=== PATIENT | female | born 1995 | race Caucasian/White ===

== ENCOUNTER 2017-10-06 09:15 | Emergency (ER) | payer BC, OTHER ==
[2017-10-06 10:13] VITALS: BP 122/77
--- NOTE | 2017-10-06 10:55 | RAD ---
Indication: Right foot pain. 3 views of the right foot demonstrates no fracture or dislocation. No other bone or joint abnormality is identified. IMPRESSION: No definite fractures of the right foot is noted.
--- NOTE | 2017-10-06 11:01 | UC ---
Lower Extremity/Ankle HPI - HPI Summary HPI Summary: right foot pain x 1 day stubbed her right foot last night + pain and swelling of the right foot, pain with walking , improves with rest - History of Current Complaint Chief Complaint: UCLowerExtremity Stated Complaint: RT FOOT COMPLAINT Time Seen by Provider: 10/06/17 10:38 Hx Obtained From: Patient Hx Last Menstrual Period: iud ?: No Onset/Duration: Sudden Onset, Lasting Days - 1, Still Present Severity Initially: Moderate Severity Currently: Moderate Pain Intensity: 8 Aggravating Factor(s): Standing, Ambulation Alleviating Factor(s): Rest, Elevation, Ice Able to Bear Weight: Yes - Allergies/Home Medications Allergies/Adverse Reactions: Allergies Allergy/AdvReac Type Severity Reaction Status Date / Time Sulfa (Sulfonamide Allergy Rash Verified 10/06/17 10:13 Antibiotics) PMH/Surg Hx/FS Hx/Imm Hx Previously Healthy: Yes - Surgical History Surgical History: Yes Surgery Procedure, Year, and Place: BREAST BIOPSY, ADENOIDS, TUBES IN EARS - Family History Known Family History: Positive: None, Other - postivie [facility] for asthma - Social History Alcohol Use: None Substance Use Type: None Smoking Status (MU): Never Smoked Tobacco - Immunization History Most Recent Influenza Vaccination: none Review of Systems Constitutional: Negative Skin: Negative Eyes: Negative ENT: Negative Respiratory: Negative Is Patient Immunocompromised?: No All Other Systems Reviewed And Are Negative: Yes Physical Exam Triage Information Reviewed: Yes Appearance: Well-Appearing, No Pain Distress, Well-Nourished Vital Signs: Initial Vital Signs Temp 98.0 F 10/06/17 10:09 Pulse 88 10/06/17 10:09 Resp 18 10/06/17 10:09 BP 122/77 10/06/17 10:09 Pulse Ox 99 10/06/17 10:09 ENT: Positive: Normal ENT inspection, Hearing grossly normal, Pharynx normal, Pharyngeal erythema Neck: Positive: Supple, Nontender, No Lymphadenopathy Respiratory: Positive: Chest non-tender, Lungs clear, Normal breath sounds Cardiovascular: Positive: RRR, No Murmur, Pulses Normal Musculoskeletal: Positive: Other: - right foot: no swelling, no bruising , + tenderness 5th metatarsal bone , Skin Exam: Normal Diagnostics - Laboratory Diagnostic Studies Completed/Ordered: right foot xray: no fracture seen , normal xray Lower Extremity Course/Dx - Differential Dx/Diagnosis Provider Diagnoses: contusion right foot Discharge - Discharge Plan Condition: Stable Disposition: HOME Patient Education Materials: Foot Contusion (ED) Forms: *Work Release Referrals: Kylee Hollingsworth MD [Primary Care Provider] - If Needed
== END 2017-10-06 11:03 | disposition home or self-care (01) ==
LOC: UCCORT 09:15
DX: S90.31XA Contusion of right foot, initial encounter (principal); W22.8XXA Striking against or struck by other objects, initial encounter; Y92.9 Unspecified place or not applicable
CPT/HCPCS: 99211; G0463

== ENCOUNTER 2018-02-03 13:03 | Emergency (ER) | payer BC ==
[2018-02-03 13:30] VITALS: BP 110/74
--- NOTE | 2018-02-03 13:57 | UC ---
Throat Pain/Nasal Evelio HPI - HPI Summary HPI Summary: Pt c/o nasal congestion, sinus pressure, chills and generalized malaise X 2-3 days. - History of Current Complaint Chief Complaint: UCGeneralIllness Stated Complaint: SINUS CONGESTION Time Seen by Provider: 02/03/18 13:44 Hx Obtained From: Patient Hx Last Menstrual Period: 01/08/18 ?: No Onset/Duration: Sudden Onset Severity: Moderate Pain Intensity: 5 Associated Signs & Symptoms: Positive: Sinus Discomfort - Epiglottits Risk Factors Epiglottis Risk Factors: Negative - Allergies/Home Medications Allergies/Adverse Reactions: Allergies Allergy/AdvReac Type Severity Reaction Status Date / Time Sulfa (Sulfonamide Allergy Rash Verified 02/03/18 13:26 Antibiotics) PMH/Surg Hx/FS Hx/Imm Hx Previously Healthy: Yes - Surgical History Surgical History: Yes Surgery Procedure, Year, and Place: BREAST BIOPSY, ADENOIDS, TUBES IN EARS - Family History Known Family History: Positive: None, Other - postivie [facility] for asthma - Social History Occupation: Employed Full-time Lives: With Family Alcohol Use: None Substance Use Type: None Smoking Status (MU): Never Smoked Tobacco Have You Smoked in the Last Year: No - Immunization History Most Recent Influenza Vaccination: none Review of Systems Constitutional: Chills, Fatigue Skin: Negative Eyes: Negative ENT: Sinus Congestion, Sinus Pain/Tenderness Respiratory: Negative Cardiovascular: Negative Gastrointestinal: Negative Genitourinary: Negative Motor: Negative Neurovascular: Negative Musculoskeletal: Negative Neurological: Negative Psychological: Negative Is Patient Immunocompromised?: No All Other Systems Reviewed And Are Negative: Yes Physical Exam Triage Information Reviewed: Yes Appearance: Ill-Appearing Vital Signs: Initial Vital Signs Temp 99.1 F 02/03/18 13:24 Pulse 75 02/03/18 13:24 Resp 16 02/03/18 13:24 BP 110/74 02/03/18 13:24 Pulse Ox 98 02/03/18 13:24 Vital Signs Reviewed: Yes Eye Exam: Normal ENT Exam: Other ENT: Positive: Nasal congestion, Sinus tenderness Dental Exam: Normal Neck exam: Normal Respiratory Exam: Normal Cardiovascular Exam: Normal Musculoskeletal Exam: Normal Neurological Exam: Normal Psychological Exam: Normal Skin Exam: Normal Throat Pain/Nasal Course/Dx - Differential Dx/Diagnosis Differential Diagnosis/HQI/PQRI: Sinusitis, URI Provider Diagnoses: sinusitis Discharge - Sign-Out/Discharge Documenting (check all that apply): Discharge/Admit/Transfer - Discharge Plan Condition: Stable Disposition: HOME Prescriptions: Amoxicillin PO (*) [Amoxicillin 875 MG (*)] 875 mg PO Q12H #20 tab Guaifenesin/Pseudoephedrne HCl [Mucinex D] 1 tab PO DAILY #10 tab Patient Education Materials: Sinusitis (ED) Forms: *Work Release Referrals: Kylee Hollingsworth MD [Primary Care Provider] - If Needed - Billing Disposition and Condition Condition: STABLE Disposition: Home
== END 2018-02-03 14:07 | disposition home or self-care (01) ==
LOC: UCCORT 13:03
DX: J32.9 Chronic sinusitis, unspecified (principal); Z88.2 Allergy status to sulfonamides
CPT/HCPCS: 99212; G0463

== ENCOUNTER 2018-04-07 10:58 | Emergency (ER) | payer BC ==
[2018-04-07 11:15] VITALS: BP 118/73
--- NOTE | 2018-04-07 11:25 | UC ---
Back Pain HPI - HPI Summary HPI Summary: Patient states that she got up early yesterday morning to go to work and accidentally slipped and spell on her steps. She reports that she fell down 2 steps on her back. Short time later she developed stiffness to the sides of her neck and her left lower back. She denies striking her head. She denies any other injuries offers no other complaints. She's attempted no self treatment. - History of Current Complaint Chief Complaint: UCBackPain Stated Complaint: BACK AND NECK STIFFNESS S/P FALL Time Seen by Provider: 04/07/18 11:06 Hx Obtained From: Patient Hx Last Menstrual Period: 04/03/18; IUD Timing: Constant Pain Intensity: 4 Aggravating Factor(s): Movement Associated Signs And Symptoms: Negative: Fever, Weakness, Numbness, Tingling, Abdominal Pain, Flank Pain, Bladder Incontinence, Bowel Incontinence - Allergies/Home Medications Allergies/Adverse Reactions: Allergies Allergy/AdvReac Type Severity Reaction Status Date / Time Sulfa (Sulfonamide Allergy Rash Verified 04/07/18 11:07 Antibiotics) Home Medications: Home Medications Levonorgestrel (Iud) [Kyleena IUD] 1 implant ONCE 04/07/18 [History Confirmed ] PMH/Surg Hx/FS Hx/Imm Hx Previously Healthy: Yes - Surgical History Surgical History: Yes Surgery Procedure, Year, and Place: BREAST BIOPSY, ADENOIDS, TUBES IN EARS - Family History Known Family History: Positive: None, Other [facility] - Social History Occupation: Employed Full-time Alcohol Use: None Substance Use Type: None Smoking Status (MU): Never Smoked Tobacco Have You Smoked in the Last Year: No - Immunization History Most Recent Influenza Vaccination: none Most Recent Tetanus Shot: UTD Vaccination Up to Date: Yes Review of Systems Constitutional: Negative Skin: Negative Eyes: Negative ENT: Negative Respiratory: Negative Cardiovascular: Negative Gastrointestinal: Negative Genitourinary: Negative Motor: Negative Neurovascular: Negative Musculoskeletal: Other: - Stiffness to sides of neck and left lower back Neurological: Negative Psychological: Negative Is Patient Immunocompromised?: No All Other Systems Reviewed And Are Negative: Yes Physical Exam Triage Information Reviewed: Yes Appearance: Well-Appearing Vital Signs: Initial Vital Signs Temp 98.7 F 04/07/18 11:08 Pulse 92 04/07/18 11:08 Resp 16 04/07/18 11:08 BP 118/73 04/07/18 11:08 Pulse Ox 100 04/07/18 11:08 Vital Signs Reviewed: Yes Eyes: Positive: Conjunctiva Clear ENT: Positive: Pharynx normal, TMs normal. Negative: Nasal congestion, Nasal drainage Neck: Positive: Supple, Nontender, No Lymphadenopathy Respiratory: Positive: Chest non-tender, Lungs clear, Normal breath sounds Cardiovascular: Positive: RRR, No Murmur Abdomen Description: Positive: Nontender, No Organomegaly, Soft. Negative: CVA Tenderness (R), CVA Tenderness (L), Distended, Guarding Bowel Sounds: Positive: Present Musculoskeletal: Positive: Other: - Head is normocephalic and atraumatic. Cervical thoracic and lumbar spine are without gross deformity swelling or discoloration. Spinous processes are nontender to palpation. Patient has full range of motion throughout. She does note tenderness to palpation to the paraspinal muscles in the cervical region as well as the left lumbar region. She is 5 out of 5 strength and 2+ reflexes 4. There is no saddle anesthesia. She is normal steady gait. Neurological: Positive: Alert Psychological: Positive: Age Appropriate Behavior Skin Exam: Normal Back Pain Course/Dx - Course Course Of Treatment: No associated headache injury. No bony deformity or tenderness this no concern for fracture or dislocation. Muscle discomfort started after the initial injury plus patient's physical exam is consistent with muscular discomfort paraspinal muscles of the cervical region and left lower lumbar region thus we'll treat with anti-inflammatory and muscle relaxer. Provide with note to be out of work for 2 days. Recheck with PCP advised as well. No concern for infection, acute abdomen or cauda equina. - Differential Dx/Diagnosis Provider Diagnoses: Acute cervical strain. Acute low back pain. Discharge - Sign-Out/Discharge Documenting (check all that apply): Patient Departure All imaging exams completed and their final reports reviewed: No Studies - Discharge Plan Condition: Stable Disposition: HOME Prescriptions: Cyclobenzaprine TAB* [Flexeril 10 MG TAB*] 10 mg PO TID PRN #10 tab PRN Reason: Pain - Back Naproxen [Naprosyn 500 mg tab] 500 mg PO BID 7 Days #14 tablet Patient Education Materials: Cervical Strain (DC), Acute Low Back Pain (ED) Forms: *Work Release Referrals: Kylee Hollingsworth MD [Primary Care Provider] - 7 Days - Billing Disposition and Condition Condition: STABLE Disposition: Home
== END 2018-04-07 11:36 | disposition home or self-care (01) ==
LOC: UCCORT 10:58
DX: S16.1XXA Strain of muscle, fascia and tendon at neck level, initial encounter (principal); M54.5 Low back pain; Z88.2 Allergy status to sulfonamides; W10.9XXA Fall (on) (from) unspecified stairs and steps, initial encounter; Y92.9 Unspecified place or not applicable
CPT/HCPCS: 99212; G0463

== ENCOUNTER 2019-09-28 21:10 | Emergency (ER) | payer OTHER ==
[2019-09-28 21:21] VITALS: BP 119/75
--- NOTE | 2019-09-28 21:39 | UC ---
Throat Pain/Nasal Evelio HPI - HPI Summary HPI Summary: 23yo female presenting with nasal congestion, sore throat, and "itchiness and pressure of her face" since yesterday. States face pressure and itching is "around her sinuses" and thinks she "may have a sinus infection." States throat is "more dry than painful." Denies fevers. Notes chills and mild body aches. Denies n/v. Denies cough. Taking sinus medication without relief. - History of Current Complaint Chief Complaint: UCRespiratory Stated Complaint: HEAD CONGESTION, SORE THROAT Hx Obtained From: Patient Hx Last Menstrual Period: 09/05/19 Pain Intensity: 7 Pain Scale Used: 0-10 Numeric - Allergies/Home Medications Allergies/Adverse Reactions: Allergies Allergy/AdvReac Type Severity Reaction Status Date / Time Sulfa (Sulfonamide Allergy Rash Verified 09/28/19 21:16 Antibiotics) Home Medications: Home Medications Bcp 1 tab DAILY 09/28/19 [History Confirmed 09/28/19] PMH/Surg Hx/FS Hx/Imm Hx - Surgical History Surgical History: Yes Surgery Procedure, Year, and Place: BREAST BIOPSY, ADENOIDS, TUBES IN EARS - Family History Known Family History: Positive: None, Other - postivie [facility] [place] for asthma - Social History Alcohol Use: Rare Substance Use Type: None Smoking Status (MU): Never Smoked Tobacco Have You Smoked in the Last Year: No - Immunization History Most Recent Influenza Vaccination: none Most Recent Tetanus Shot: UTD Vaccination Up to Date: Yes Review of Systems All Other Systems Reviewed And Are Negative: Yes Constitutional: Positive: Chills ENT: Positive: Sore Throat, Sinus Congestion, Sinus Pain/Tenderness Respiratory: Positive: Negative Cardiovascular: Positive: Negative Gastrointestinal: Positive: Negative Musculoskeletal: Positive: Myalgia Neurological/Mental Status: Positive: Headache Physical Exam - Summary Physical Exam Summary: Vital Signs Reviewed: Yes A+Ox3, no distress Eyes: Conjunctiva Clear ENT: Hearing grossly normal, TM x 2 clear, +nasal congestion, moist, uvula midline, no exudate, +pharyngeal erythema Neck: Positive: Supple Respiratory: Positive: No respiratory distress, No accessory muscle use + CTA throughout no w/r Cardiovascular: RRR nl s1, s2 no m/r Musculoskeletal Exam: CORDERO x 4 without difficulty Neurological: Positive: Alert Psychological: Positive: age appropriate behavior Skin: Positive: no rash, no ecchymosis Vital Signs: Initial Vital Signs Temp 98.9 F 09/28/19 21:16 Pulse 96 09/28/19 21:16 Resp 16 09/28/19 21:16 BP 119/75 09/28/19 21:16 Pulse Ox 100 09/28/19 21:16 Throat Pain/Nasal Course/Dx - Course Course Of Treatment: Negative rapid flu. Discussed with patient the likely viral etiology of upper respiratory symptoms. Patient instructed to continue to take OTC decongestant and OTC analgesics as directed for pain relief. Directed to follow up with pcp if symptoms do not resolve within 7 days. Patient voiced understanding and agreed to treatment plan. - Differential Dx/Diagnosis Differential Diagnosis/HQI/PQRI: Influenza, Pharyngitis, Sinusitis, URI Provider Diagnosis: Viral URI Discharge ED - Sign-Out/Discharge Documenting (check all that apply): Patient Departure All imaging exams completed and their final reports reviewed: No Studies - Discharge Plan Condition: Stable Disposition: HOME Patient Education Materials: Upper Respiratory Infection (ED) Referrals: Kylee Hollingsworth MD [Primary Care Provider] - If Needed Additional Instructions: Your rapid flu test was negative today. You symptoms are likely caused by a virus and should resolve without treatment. Continue to take the over the counter decongestant for symptom relief. You may use nasal saline spray or flonase as directed for symptomatic relief. You may take ibuprofen or tylenol as directed for pain relief. Get plenty of rest and fluids. Return or follow up with your primary care doctor if your symptoms worsen or do not resolve within 7 days. - Billing Disposition and Condition Condition: STABLE Disposition: Home
[2019-09-28 22:09] LABS: Influenza A Molecular Negative (Negative); Influenza B Molecular Negative (Negative)
== END 2019-09-28 22:17 | disposition home or self-care (01) ==
LOC: UCCORT 21:10
DX: J06.9 Acute upper respiratory infection, unspecified (principal); M79.10 Myalgia, unspecified site; Z88.2 Allergy status to sulfonamides
CPT/HCPCS: 99211; G0463